=== PATIENT | male | born 1980 | race African-American/Black ===

== ENCOUNTER 2021-03-02 21:56 | Emergency (ER) | payer SELFPAY ==
[~2021-03-02] VITALS: Ht 190.5 cm; Wt 100.0 kg
[2021-03-02] MEDS ORDERED: METHOCARBAMOL 500MG TABLET PO ONE (22:30)
[2021-03-02] MEDS ORDERED: TRAMADOL 50MG TABLET PO ONE (22:30)
[2021-03-02] MEDS ORDERED: METH-773 MT (23:17)
[2021-03-02] MEDS ORDERED: IBUP-2029 MT (23:17)
[2021-03-03 00:03] VITALS: BP 141/85
== END 2021-03-03 00:03 | disposition home or self-care (01) ==
LOC: ER 21:56
DX: S39.012A Strain of muscle, fascia and tendon of lower back, initial encounter (principal); R51.9 Headache, unspecified; V49.60XA Unspecified car occupant injured in collision with unspecified motor vehicles in traffic accident, initial encounter; Y93.89 Activity, other specified; Y92.488 Other paved roadways as the place of occurrence of the external cause
CPT/HCPCS: 99283